=== PATIENT | female | born 1935 | race Caucasian/White ===

== ENCOUNTER 2021-02-25 19:47 | Inpatient (IN) | payer OTHER, SELFPAY ==
[~2021-02-25] VITALS: Ht 167.6 cm; Wt 71.4 kg
[2021-02-25 19:52] VITALS: BP_SYST 130
[2021-02-25] MEDS ORDERED: traMADol HCL HCL 50 MG TABLET (ULTRAM) PO ONE (21:00)
[2021-02-25] MEDS ORDERED: fentaNYL CITRATE/PF 100 MCG/2 ML AMP IVP ONE (21:15)
[2021-02-25] MEDS ORDERED: VERA120C2 PO (23:04)
[2021-02-25] MEDS ORDERED: SIMV40TA2 PO (23:08)
[2021-02-25] MEDS ORDERED: WELSR150 PO (23:08)
[2021-02-25] MEDS ORDERED: CALC-1112 PO (23:12)
[2021-02-25] MEDS ORDERED: TRAZ-251 PO (23:12)
[2021-02-25] MEDS ORDERED: METH-634 PO (23:12)
[2021-02-25] MEDS ORDERED: LOSA100T3 PO (23:12)
[2021-02-25] MEDS ORDERED: MESA1.2T3 PO (23:12)
[2021-02-25] MEDS ORDERED: POLY17PO4 PO (23:12)
[2021-02-25] MEDS ORDERED: MULT-1117 PO (23:12)
[2021-02-25] MEDS ORDERED: ASA81 PO (23:12)
[2021-02-25] MEDS ORDERED: BIOT5000 PO (23:12)
[2021-02-26] MEDS ORDERED: NALOXONE HCL 0.4 MG/ML AMP (NARCAN) IVP PRN (00:15)
[2021-02-26] MEDS ORDERED: KETOROLAC TROMETHAMINE 30 MG VIAL IVP PRN (00:15)
[2021-02-26 00:18] LABS: BASOPHILS # (AUTO) 0.1 K/uL (0.0-0.2); BASOPHILS % (AUTO) 0.7 % (0.0-2.0); EOSINOPHILS # (AUTO) 0.1 K/uL (0.0-0.4); EOSINOPHILS % (AUTO) 1.2 % (0.0-4.0); HEMATOCRIT 33.8 % (36-48); HEMOGLOBIN 11.4 g/dL (12.0-16.0); LYMPHOCYTES # (AUTO) 1.4 K/uL (1.0-5.5); LYMPHOCYTES % (AUTO) 17.9 % (20.5-51.5); MEAN CORPUSCULAR HEMOGLOBIN 34 pg (27-31); MEAN CORPUSCULAR HGB CONC 34 % (32-36); MEAN CORPUSCULAR VOLUME 101 fL (79.0-98.0); MONOCYTES # (AUTO) 0.8 K/uL (0.0-1.0); MONOCYTES % (AUTO) 10.5 % (1.7-9.3); NEUTROPHILS # (AUTO) 5.5 K/uL (1.8-7.7); NEUTROPHILS % (AUTO) 69.7 % (40.0-70.0); PLATELET COUNT (AUTO) 240 K/uL (130-430); RED BLOOD CELL COUNT(AUTO) 3.35 MIL/uL (4.2-6.2); RED CELL DISTRIBUTION WIDTH 13.1 % (9.0-15.0); WHITE BLOOD COUNT (AUTO) 7.9 K/uL (4.8-10.8)
[2021-02-26 00:36] LABS: ANION GAP 7 (5-15); CHLORIDE 101 mmol/L (98-107); CREATININE 0.85 mg/dL (0.55-1.30); GLUCOSE 97 mg/dL (70-99); POTASSIUM 4.1 mmol/L (3.5-5.1); SODIUM SERUM 137 mmol/L (136-145); UREA NITROGEN, BLOOD 17 mg/dL (8-21)
[2021-02-26 00:56] LABS: ALANINE AMINOTRANSFERASE 24 U/L (12-78); ALBUMIN 2.7 g/dL (3.4-4.8); ASPARTATE AMINOTRANSFERASE 10 U/L (10-37); TOTAL BILIRUBIN 0.4 mg/dL (0.0-1.0)
[2021-02-26 01:03] VITALS: BP_SYST 120
[2021-02-26] MEDS: D5/0.45 NS 1,000 ML IV SCH ×3 (01:50→18:34)
[2021-02-26] MEDS: HYDROmorphone 1 MG/ML INJ. CARTRIDGE IVP PRN ×4 (01:51→20:35)
[2021-02-26 09:15] VITALS: BP_SYST 102
[2021-02-26 12:01] VITALS: BP_SYST 118
[2021-02-26 16:01] VITALS: BP_SYST 115
[2021-02-26] MEDS ORDERED: IBUPROFEN 600 MG TABLET PO PRN (18:30)
[2021-02-26] MEDS ORDERED: LORazepam 2 MG/ML VIAL IVP PRN (18:30)
[2021-02-26] MEDS ORDERED: ONDANSETRON HCL 4 MG/2 ML VIAL IVP PRN (18:30)
[2021-02-26] MEDS ORDERED: POLY30DR OP (19:49)
[2021-02-26] MEDS ORDERED: VITD2000 PO (19:49)
[2021-02-26] MEDS ORDERED: BIFI10.5 PO (19:49)
[2021-02-26] MEDS ORDERED: DICL50TA9 PO (19:49)
[2021-02-26 20:00] VITALS: BP_SYST 119
[2021-02-26] MEDS: traZODone HCL 50 MG TABLET (DESYREL) PO SCH (20:33)
[2021-02-26] MEDS: SIMVASTATIN 40 MG TABLET PO SCH (20:34)
[2021-02-26] MEDS: CALCIUM CARBONATE/VITAMIN D3 1 TAB TABLET PO SCH (20:34)
[2021-02-26] MEDS: MESALAMINE 400 MG CAPSULE.DR PO SCH (20:34)
[2021-02-26] MEDS ORDERED: NON-FORMULARY MEDICATION (Biotin 5,000 MCG) PO SCH (21:00)
[2021-02-27] VITALS: BP_SYST 116
[2021-02-27] MEDS: D5/0.45 NS 1,000 ML IV SCH ×2 (05:05→15:15)
[2021-02-27 07:42] LABS: BASOPHILS % (AUTO) 0.4 % (0.0-2.0); EOSINOPHILS # (AUTO) 0.1 K/uL (0.0-0.4); EOSINOPHILS % (AUTO) 0.7 % (0.0-4.0); HEMATOCRIT 30.8 % (36-48); HEMOGLOBIN 10.5 g/dL (12.0-16.0); LYMPHOCYTES # (AUTO) 0.9 K/uL (1.0-5.5); LYMPHOCYTES % (AUTO) 9.8 % (20.5-51.5); MEAN CORPUSCULAR HEMOGLOBIN 34 pg (27-31); MEAN CORPUSCULAR HGB CONC 34 % (32-36); MEAN CORPUSCULAR VOLUME 101 fL (79.0-98.0); MONOCYTES # (AUTO) 1.4 K/uL (0.0-1.0); MONOCYTES % (AUTO) 16.1 % (1.7-9.3); NEUTROPHILS # (AUTO) 6.4 K/uL (1.8-7.7); PLATELET COUNT (AUTO) 219 K/uL (130-430); RED BLOOD CELL COUNT(AUTO) 3.06 MIL/uL (4.2-6.2); RED CELL DISTRIBUTION WIDTH 12.7 % (9.0-15.0); WHITE BLOOD COUNT (AUTO) 8.7 K/uL (4.8-10.8)
[2021-02-27 08:00] VITALS: BP_SYST 140
[2021-02-27] MEDS: VERAPAMIL HCL 120 MG TABLET.SA PO SCH (09:00)
[2021-02-27] MEDS: methocarbamoL 500 MG TABLET PO SCH (09:00)
[2021-02-27] MEDS: MESALAMINE 400 MG CAPSULE.DR PO SCH ×2 (09:00→21:00)
[2021-02-27] MEDS: POLYETHYLENE GLYCOL 3350, 17 GM/ POWD.PACK PO SCH (09:00)
[2021-02-27] MEDS ORDERED: buPROPion HCL 150 MG TABLET.SA PO SCH (09:00)
[2021-02-27] MEDS ORDERED: ASPIRIN 81 MG TAB.CHEW PO SCH (09:00)
[2021-02-27] MEDS: MULTIVITAMINS TAB 1 TABLET PO SCH (09:00)
[2021-02-27] MEDS: LOSARTAN POTASSIUM 50 MG TABLET (COZAAR) PO SCH (09:00)
[2021-02-27] MEDS: CALCIUM CARBONATE/VITAMIN D3 1 TAB TABLET PO SCH ×2 (09:00→21:00)
[2021-02-27 09:14] LABS: PROTHROMBIN TIME 10.6 SECS (9.5-12.5)
[2021-02-27 09:27] LABS: ANION GAP 7 (5-15); CALCIUM 8.9 mg/dL (8.4-11.0); CHLORIDE 100 mmol/L (98-107); CREATININE 0.85 mg/dL (0.55-1.30); GLUCOSE 129 mg/dL (70-99); PHOSPHORUS 3.3 mg/dL (2.7-4.5); POTASSIUM 4.1 mmol/L (3.5-5.1); SODIUM SERUM 134 mmol/L (136-145); UREA NITROGEN, BLOOD 17 mg/dL (8-21)
[2021-02-27 11:36] LABS: BILIRUBIN,URINE NEGATIVE (NEGATIVE); BLOOD, URINE 1+ (NEGATIVE); CLARITY/URINE CLOUDY (CLEAR); COLOR,URINE YELLOW (YELLOW); GLUCOSE,URINE NEGATIVE (NEGATIVE); KETONES,URINE NEGATIVE (NEGATIVE); LEUKOCYTE ESTERASE ,URINE 2+ (NEGATIVE); NITRITE, URINE NEGATIVE (NEGATIVE); PH,URINE 5.5 (5.0-8.0); PROTEIN URINE NEGATIVE (NEGATIVE); UROBILINOGEN,URINE 0.2 (0.2-1.0)
[2021-02-27] MEDS ORDERED: fentaNYL CITRATE/PF 100 MCG/2 ML AMP IVP PRN (11:45)
[2021-02-27] MEDS ORDERED: METOCLOPRAMIDE HCL 10 MG/2 ML VIAL IVP PRN (11:45)
[2021-02-27] MEDS ORDERED: ONDANSETRON HCL 4 MG/2 ML VIAL IVP PRN (11:45)
[2021-02-27 11:51] LABS: BACTERIA,URINE MANY /HPF (None Seen); WBC,URINE >100 /HPF (0-3)
[2021-02-27] MEDS ORDERED: BUPIVACAINE LIPOSOME/PF 266 MG/20 ML VIAL INFIL ONE (13:19)
[2021-02-27] MEDS: fentaNYL CITRATE/PF 100 MCG/2 ML AMP IVP PRN ×2 (14:38→14:58)
[2021-02-27] MEDS ORDERED: fentaNYL CITRATE/PF 100 MCG/2 ML AMP ONE (14:41)
[2021-02-27] MEDS: HYDROmorphone 1 MG/ML INJ. CARTRIDGE IVP PRN ×2 (17:04→23:03)
[2021-02-27] MEDS: traZODone HCL 50 MG TABLET (DESYREL) PO SCH (21:00)
[2021-02-27] MEDS: DOCUSATE SODIUM 100 MG CAPSULE PO SCH (21:00)
[2021-02-27] MEDS: SIMVASTATIN 40 MG TABLET PO SCH (21:00)
[2021-02-27] MEDS: CEFAZOLIN 1 GM IVPB PREMIX 50 ML IV SCH (22:39)
[2021-02-28] MEDS: HYDROmorphone 1 MG/ML INJ. CARTRIDGE IVP PRN ×3 (03:54→22:28)
[2021-02-28] MEDS: CEFAZOLIN 1 GM IVPB PREMIX 50 ML IV SCH (06:49)
[2021-02-28 07:40] LABS: BASOPHILS % (AUTO) 0.1 % (0.0-2.0); HEMATOCRIT 27.2 % (36-48); HEMOGLOBIN 9.2 g/dL (12.0-16.0); LYMPHOCYTES # (AUTO) 0.6 K/uL (1.0-5.5); LYMPHOCYTES % (AUTO) 4.7 % (20.5-51.5); MEAN CORPUSCULAR HEMOGLOBIN 34 pg (27-31); MEAN CORPUSCULAR HGB CONC 34 % (32-36); MEAN CORPUSCULAR VOLUME 100 fL (79.0-98.0); MONOCYTES # (AUTO) 1.5 K/uL (0.0-1.0); MONOCYTES % (AUTO) 11.9 % (1.7-9.3); NEUTROPHILS # (AUTO) 10.4 K/uL (1.8-7.7); NEUTROPHILS % (AUTO) 83.3 % (40.0-70.0); PLATELET COUNT (AUTO) 210 K/uL (130-430); RED BLOOD CELL COUNT(AUTO) 2.72 MIL/uL (4.2-6.2); RED CELL DISTRIBUTION WIDTH 12.7 % (9.0-15.0); WHITE BLOOD COUNT (AUTO) 12.4 K/uL (4.8-10.8)
[2021-02-28 08:00] VITALS: BP_SYST 113
[2021-02-28] MEDS: CALCIUM CARBONATE/VITAMIN D3 1 TAB TABLET PO SCH ×2 (08:56→21:27)
[2021-02-28] MEDS: POLYETHYLENE GLYCOL 3350, 17 GM/ POWD.PACK PO SCH (08:56)
[2021-02-28] MEDS: MULTIVITAMINS TAB 1 TABLET PO SCH (08:57)
[2021-02-28] MEDS: DOCUSATE SODIUM 100 MG CAPSULE PO SCH ×2 (08:57→21:27)
[2021-02-28] MEDS: MESALAMINE 400 MG CAPSULE.DR PO SCH ×2 (08:57→21:27)
[2021-02-28] MEDS: methocarbamoL 500 MG TABLET PO SCH (08:58)
[2021-02-28] MEDS: LOSARTAN POTASSIUM 50 MG TABLET (COZAAR) PO SCH (08:58)
[2021-02-28] MEDS: VERAPAMIL HCL 120 MG TABLET.SA PO SCH (08:58)
[2021-02-28] MEDS: ENOXAPARIN SODIUM 40 MG/0.4 ML SYRINGE SUBCUT SCH (08:59)
[2021-02-28] MEDS: VITAMIN B COMPLEX WITH C TAB/CAP PO SCH (09:02)
[2021-02-28 09:12] LABS: ANION GAP 10 (5-15); CALCIUM 8.3 mg/dL (8.4-11.0); CHLORIDE 100 mmol/L (98-107); CREATININE 0.98 mg/dL (0.55-1.30); GLUCOSE 178 mg/dL (70-99); POTASSIUM 4.5 mmol/L (3.5-5.1); SODIUM SERUM 134 mmol/L (136-145); UREA NITROGEN, BLOOD 18 mg/dL (8-21)
[2021-02-28] MEDS ORDERED: DOCU-144 PO (11:43)
[2021-02-28] MEDS ORDERED: LOVI40 SUBCUT (11:43)
[2021-02-28 12:00] VITALS: BP_SYST 116
[2021-02-28] MEDS: D5/0.45 NS 1,000 ML IV SCH ×2 (13:23→21:15)
[2021-02-28 16:00] VITALS: BP_SYST 107
[2021-02-28 19:00] VITALS: BP_SYST 111
[2021-02-28 20:00] VITALS: BP_SYST 111
[2021-02-28] MEDS: traZODone HCL 50 MG TABLET (DESYREL) PO SCH (21:27)
[2021-02-28] MEDS: SIMVASTATIN 40 MG TABLET PO SCH (21:27)
[2021-03-01 00:20] VITALS: BP_SYST 107
[2021-03-01] MEDS: D5/0.45 NS 1,000 ML IV SCH ×3 (05:10→22:14)
[2021-03-01 07:42] LABS: ALANINE AMINOTRANSFERASE 36 U/L (12-78); ALBUMIN 1.9 g/dL (3.4-4.8); ANION GAP 4 (5-15); ASPARTATE AMINOTRANSFERASE 28 U/L (10-37); CALCIUM 9.1 mg/dL (8.4-11.0); CHLORIDE 102 mmol/L (98-107); CREATININE 0.92 mg/dL (0.55-1.30); GLUCOSE 125 mg/dL (70-99); POTASSIUM 4.8 mmol/L (3.5-5.1); SODIUM SERUM 132 mmol/L (136-145); TOTAL BILIRUBIN 0.4 mg/dL (0.0-1.0); UREA NITROGEN, BLOOD 26 mg/dL (8-21)
[2021-03-01 08:00] VITALS: BP_SYST 140
[2021-03-01] MEDS: POLYETHYLENE GLYCOL 3350, 17 GM/ POWD.PACK PO SCH (08:53)
[2021-03-01] MEDS: MULTIVITAMINS TAB 1 TABLET PO SCH (08:54)
[2021-03-01] MEDS: MESALAMINE 400 MG CAPSULE.DR PO SCH ×2 (08:54→20:58)
[2021-03-01] MEDS: VERAPAMIL HCL 120 MG TABLET.SA PO SCH (08:54)
[2021-03-01] MEDS: LOSARTAN POTASSIUM 50 MG TABLET (COZAAR) PO SCH (08:55)
[2021-03-01] MEDS: DOCUSATE SODIUM 100 MG CAPSULE PO SCH ×2 (08:55→20:58)
[2021-03-01] MEDS: CALCIUM CARBONATE/VITAMIN D3 1 TAB TABLET PO SCH ×2 (08:55→20:57)
[2021-03-01] MEDS: methocarbamoL 500 MG TABLET PO SCH (08:55)
[2021-03-01] MEDS: ENOXAPARIN SODIUM 40 MG/0.4 ML SYRINGE SUBCUT SCH (09:01)
[2021-03-01] MEDS: VITAMIN B COMPLEX WITH C TAB/CAP PO SCH (09:01)
[2021-03-01 09:10] LABS: BASOPHILS % (AUTO) 0.1 % (0.0-2.0); EOSINOPHILS % (AUTO) 0.1 % (0.0-4.0); HEMATOCRIT 25.6 % (36-48); HEMOGLOBIN 8.6 g/dL (12.0-16.0); LYMPHOCYTES # (AUTO) 0.8 K/uL (1.0-5.5); LYMPHOCYTES % (AUTO) 6.1 % (20.5-51.5); MEAN CORPUSCULAR HEMOGLOBIN 34 pg (27-31); MEAN CORPUSCULAR HGB CONC 34 % (32-36); MEAN CORPUSCULAR VOLUME 101 fL (79.0-98.0); MONOCYTES # (AUTO) 1.7 K/uL (0.0-1.0); MONOCYTES % (AUTO) 12.3 % (1.7-9.3); NEUTROPHILS # (AUTO) 11.2 K/uL (1.8-7.7); NEUTROPHILS % (AUTO) 81.4 % (40.0-70.0); PLATELET COUNT (AUTO) 240 K/uL (130-430); RED BLOOD CELL COUNT(AUTO) 2.53 MIL/uL (4.2-6.2); RED CELL DISTRIBUTION WIDTH 12.8 % (9.0-15.0); WHITE BLOOD COUNT (AUTO) 13.7 K/uL (4.8-10.8)
[2021-03-01] MEDS ORDERED: NS IRRIG SOLN 1000 ML IR ONE (11:00)
[2021-03-01] MEDS ORDERED: LR 1,000 ML IV.SOLN IV ONE (11:00)
[2021-03-01] MEDS ORDERED: CEFAZOLIN 2 GM IVPB PREMIX 50 ML IV ONE (11:00)
[2021-03-01] MEDS ORDERED: TRIAMCINOLONE ACETONIDE 40 MG/ML IM ONE (11:00)
[2021-03-01] MEDS ORDERED: PROPOFOL 200MG/ 20ML VIAL (DIPRIVAN) IV ONE (11:00)
[2021-03-01] MEDS ORDERED: BUPIVACAINE /EPINEPHRINE/PF 0.25% 30 ML VIAL INJ ONE (11:00)
[2021-03-01] MEDS: HYDROmorphone 1 MG/ML INJ. CARTRIDGE IVP PRN ×3 (11:46→21:53)
[2021-03-01 12:00] VITALS: BP_SYST 134
[2021-03-01 16:00] VITALS: BP_SYST 136
[2021-03-01 20:14] VITALS: BP_SYST 119
[2021-03-01] MEDS: traZODone HCL 50 MG TABLET (DESYREL) PO SCH (20:57)
[2021-03-01] MEDS: SIMVASTATIN 40 MG TABLET PO SCH (20:58)
[2021-03-02 01:09] VITALS: BP_SYST 116
[2021-03-02] MEDS ORDERED: LEVOFLOXACIN 250 MG/D5W 50 ML IV ONE (05:16)
[2021-03-02] MEDS: LEVOFLOXACIN 250 MG/D5W 50 ML IV SCH (05:20)
[2021-03-02 06:34] LABS: BASOPHILS % (AUTO) 0.1 % (0.0-2.0); HEMATOCRIT 27.2 % (36-48); HEMOGLOBIN 9.3 g/dL (12.0-16.0); LYMPHOCYTES # (AUTO) 0.7 K/uL (1.0-5.5); LYMPHOCYTES % (AUTO) 7.2 % (20.5-51.5); MEAN CORPUSCULAR HEMOGLOBIN 34 pg (27-31); MEAN CORPUSCULAR HGB CONC 34 % (32-36); MEAN CORPUSCULAR VOLUME 101 fL (79.0-98.0); MONOCYTES # (AUTO) 0.9 K/uL (0.0-1.0); MONOCYTES % (AUTO) 8.9 % (1.7-9.3); NEUTROPHILS # (AUTO) 8.8 K/uL (1.8-7.7); NEUTROPHILS % (AUTO) 83.8 % (40.0-70.0); PLATELET COUNT (AUTO) 311 K/uL (130-430); RED CELL DISTRIBUTION WIDTH 13.3 % (9.0-15.0); WHITE BLOOD COUNT (AUTO) 10.5 K/uL (4.8-10.8)
[2021-03-02 06:36] LABS: ANION GAP 10 (5-15); CALCIUM 9.8 mg/dL (8.4-11.0); CHLORIDE 102 mmol/L (98-107); CREATININE 1.13 mg/dL (0.55-1.30); GLUCOSE 129 mg/dL (70-99); POTASSIUM 4.8 mmol/L (3.5-5.1); SODIUM SERUM 138 mmol/L (136-145); UREA NITROGEN, BLOOD 31 mg/dL (8-21)
[2021-03-02 07:54] VITALS: BP_SYST 141
[2021-03-02 08:26] LABS: C-REACTIVE PROTEIN QUANT 26.2 mg/dL (0-0.5)
[2021-03-02] MEDS: HYDROmorphone 1 MG/ML INJ. CARTRIDGE IVP PRN ×4 (08:48→22:44)
[2021-03-02] MEDS: ENOXAPARIN SODIUM 40 MG/0.4 ML SYRINGE SUBCUT SCH (08:51)
[2021-03-02] MEDS: methocarbamoL 500 MG TABLET PO SCH (08:52)
[2021-03-02] MEDS: LOSARTAN POTASSIUM 50 MG TABLET (COZAAR) PO SCH (08:52)
[2021-03-02] MEDS: VERAPAMIL HCL 120 MG TABLET.SA PO SCH (08:53)
[2021-03-02] MEDS: MESALAMINE 400 MG CAPSULE.DR PO SCH ×2 (08:53→20:52)
[2021-03-02] MEDS: DOCUSATE SODIUM 100 MG CAPSULE PO SCH ×2 (08:54→20:52)
[2021-03-02] MEDS: CALCIUM CARBONATE/VITAMIN D3 1 TAB TABLET PO SCH ×2 (08:54→20:52)
[2021-03-02] MEDS: MULTIVITAMINS TAB 1 TABLET PO SCH (08:54)
[2021-03-02] MEDS: POLYETHYLENE GLYCOL 3350, 17 GM/ POWD.PACK PO SCH (08:54)
[2021-03-02] MEDS: VITAMIN B COMPLEX WITH C TAB/CAP PO SCH (08:54)
[2021-03-02 09:04] LABS: ERYTHROCYTE SEDIMENTATION RATE 124 MM/HR (0-20)
[2021-03-02 12:25] VITALS: BP_SYST 129
[2021-03-02] MEDS: D5/0.45 NS 1,000 ML IV SCH ×2 (13:36→23:15)
[2021-03-02 15:27] VITALS: BP_SYST 132
[2021-03-02] MEDS ORDERED: HYDR1SYR IVP (16:39)
[2021-03-02] MEDS ORDERED: LEVO500T89 PO (16:39)
[2021-03-02] MEDS ORDERED: [UNRECOGNIZED DRUG - CODE] IVP (16:39)
[2021-03-02 20:00] VITALS: BP_SYST 123
[2021-03-02] MEDS: traZODone HCL 50 MG TABLET (DESYREL) PO SCH (20:52)
[2021-03-02] MEDS: SIMVASTATIN 40 MG TABLET PO SCH (20:52)
[2021-03-03 00:02] VITALS: BP_SYST 119
[2021-03-03] MEDS: LEVOFLOXACIN 250 MG/D5W 50 ML IV SCH (05:44)
[2021-03-03 06:55] LABS: BASOPHILS % (AUTO) 0.1 % (0.0-2.0); EOSINOPHILS % (AUTO) 0.2 % (0.0-4.0); HEMATOCRIT 23.9 % (36-48); HEMOGLOBIN 8.1 g/dL (12.0-16.0); LYMPHOCYTES # (AUTO) 1.2 K/uL (1.0-5.5); LYMPHOCYTES % (AUTO) 15.8 % (20.5-51.5); MEAN CORPUSCULAR HEMOGLOBIN 34 pg (27-31); MEAN CORPUSCULAR HGB CONC 34 % (32-36); MEAN CORPUSCULAR VOLUME 100 fL (79.0-98.0); MONOCYTES # (AUTO) 0.8 K/uL (0.0-1.0); MONOCYTES % (AUTO) 10.7 % (1.7-9.3); NEUTROPHILS # (AUTO) 5.6 K/uL (1.8-7.7); NEUTROPHILS % (AUTO) 73.2 % (40.0-70.0); PLATELET COUNT (AUTO) 313 K/uL (130-430); RED BLOOD CELL COUNT(AUTO) 2.38 MIL/uL (4.2-6.2); RED CELL DISTRIBUTION WIDTH 13.3 % (9.0-15.0); WHITE BLOOD COUNT (AUTO) 7.6 K/uL (4.8-10.8)
[2021-03-03 07:31] LABS: ALANINE AMINOTRANSFERASE 780 U/L (12-78); ALBUMIN 1.7 g/dL (3.4-4.8); ANION GAP 10 (5-15); ASPARTATE AMINOTRANSFERASE 494 U/L (10-37); CHLORIDE 102 mmol/L (98-107); GLUCOSE 113 mg/dL (70-99); POTASSIUM 4.7 mmol/L (3.5-5.1); SODIUM SERUM 137 mmol/L (136-145); TOTAL BILIRUBIN 0.5 mg/dL (0.0-1.0); UREA NITROGEN, BLOOD 29 mg/dL (8-21)
[2021-03-03 07:46] VITALS: BP_SYST 138
[2021-03-03] MEDS: HYDROmorphone 1 MG/ML INJ. CARTRIDGE IVP PRN (08:39)
[2021-03-03] MEDS: ENOXAPARIN SODIUM 40 MG/0.4 ML SYRINGE SUBCUT SCH (08:40)
[2021-03-03] MEDS: VERAPAMIL HCL 120 MG TABLET.SA PO SCH (08:44)
[2021-03-03] MEDS: CALCIUM CARBONATE/VITAMIN D3 1 TAB TABLET PO SCH (08:44)
[2021-03-03] MEDS: methocarbamoL 500 MG TABLET PO SCH (08:45)
[2021-03-03] MEDS: LOSARTAN POTASSIUM 50 MG TABLET (COZAAR) PO SCH (08:45)
[2021-03-03] MEDS: MULTIVITAMINS TAB 1 TABLET PO SCH (08:45)
[2021-03-03] MEDS: DOCUSATE SODIUM 100 MG CAPSULE PO SCH (08:45)
[2021-03-03] MEDS: POLYETHYLENE GLYCOL 3350, 17 GM/ POWD.PACK PO SCH (08:46)
[2021-03-03] MEDS: MESALAMINE 400 MG CAPSULE.DR PO SCH (08:49)
[2021-03-03] MEDS: VITAMIN B COMPLEX WITH C TAB/CAP PO SCH (08:49)
[2021-03-03 08:57] VITALS: BP_SYST 138
[2021-03-03 09:19] LABS: ERYTHROCYTE SEDIMENTATION RATE 129 MM/HR (0-20)
[2021-03-03 10:26] LABS: C-REACTIVE PROTEIN QUANT 14.6 mg/dL (0-0.5)
[2021-03-03 10:49] VITALS: BP_SYST 129; BP_SYST 138
[2021-03-03 11:44] VITALS: BP_SYST 129
[2021-03-03] MEDS ORDERED: NALOXONE HCL 0.4 MG/ML AMP (NARCAN) IVP PRN (13:15)
[2021-03-03] MEDS ORDERED: HYDROmorphone 2 MG TAB PO ONE (13:15)
[2021-03-03] MEDS ORDERED: HYDROmorphone 2 MG TAB ONE (13:20)
== END 2021-03-03 15:40 | DRG 480 ==
LOC: SED 19:47 → SMU 23:05
PROVIDERS: ADMIT Preventive Medicine Preventive Medicine/Occupational Environmental Medicine; ATTEND Preventive Medicine Preventive Medicine/Occupational Environmental Medicine
PROC: 3E0U33Z Introduction of Anti-inflammatory into Joints, Percutaneous Approach (ICD-10-PCS; 2021-02-27)
PROC: 0QSC04Z Reposition Left Lower Femur with Internal Fixation Device, Open Approach (ICD-10-PCS; principal; 2021-02-27 10:00)
DX: M97.02XA Periprosthetic fracture around internal prosthetic left hip joint, initial encounter (principal); E43 Unspecified severe protein-calorie malnutrition; S72.492A Other fracture of lower end of left femur, initial encounter for closed fracture; N39.0 Urinary tract infection, site not specified; D64.9 Anemia, unspecified; D72.829 Elevated white blood cell count, unspecified; E16.2 Hypoglycemia, unspecified; E78.5 Hyperlipidemia, unspecified; G47.00 Insomnia, unspecified; I10 Essential (primary) hypertension; Z96.642 Presence of left artificial hip joint; Z96.652 Presence of left artificial knee joint; Z20.822 Contact with and (suspected) exposure to COVID-19; R53.81 Other malaise; N31.9 Neuromuscular dysfunction of bladder, unspecified; K59.00 Constipation, unspecified; W18.39XA Other fall on same level, initial encounter; Y93.89 Activity, other specified; Y92.038 Other place in apartment as the place of occurrence of the external cause; Y99.8 Other external cause status; Z79.01 Long term (current) use of anticoagulants; Z68.25 Body mass index [BMI] 25.0-25.9, adult; Z79.82 Long term (current) use of aspirin; Z79.899 Other long term (current) drug therapy; Z88.0 Allergy status to penicillin; Z88.8 Allergy status to other drugs, medicaments and biological substances; Z91.048 Other nonmedicinal substance allergy status
CPT/HCPCS: 36415; 70470-TC; 71045; 71250-TC; 72125-TC; 72170-TC; 73502; 73560-TC; 73700-TC; 76001; 76376; 80048; 80053; 81000; 83735; 84100; 84484; 85025; 85610-TC; 85651-TC; 85730-TC; 86140; 86870; 86886; 86900; 86901; 87040-TC; 87081; 87086; 93005; 94010; 96374; 96375; 97110-GP; 97112-GP; 97116-GP; 97163-GP; 97530-GP; 99285; C1713; C9290; J0690; J1170; J1650; J1885; J1956; J2405; J2704; J3010; J3301; J3490; J7120